=== PATIENT | female | born 1960 | race Caucasian/White ===

== ENCOUNTER → 2016-11-24 | Outpatient (CLI) | payer OTHER ==
--- NOTE | 2016-11-24 18:44 | DX ---
PA and lateral chest. Clinical History: SEEN FEB 6TH FOR COUGH, Dx PNEUMONIA. MORE COUGHING PAIN R LOWER RIB CAGE Comparison Study: None available. Findings: Airspace consolidation in the right lower lobe is compatible with pneumonia. Left lung is clear. Heart size is normal. No pleural effusion.. Visualized osseous structures appear normal. Impression: Right lower lobe pneumonia.
== END ==
LOC: BMCIMAGING 18:27
PROVIDERS: ATTEND Family Medicine
DX: J18.9 Pneumonia, unspecified organism (principal)